=== PATIENT | male | born 1955 | race Caucasian/White ===

== ENCOUNTER → 2018-03-18 | Day surgery (SDC) | payer MEDICARE, OTHER ==
[~2018-03-18] MED LIST: LIDOCAINE 1% PF 2 ML VIAL. ID; LIDOCAINE 2% PF Vial for OR 5 ML VIAL.; MORPHINE SULFATE 4 MG/ML DISP.SYRIN. IV; ONDANSETRON PF 4 MG/2 ML VIAL. IV; PROCHLORPERAZINE 10 MG/2 ML VIAL. IV; PROPOFOL 40 ML IV; fentaNYL PF VIAL 100 MCG/2 ML VIAL IV
[2018-03-18] MEDS: IV RINGERS,LACTATED 1000ML 1,000 ML IV (07:00)
== END | disposition home or self-care (01) ==
LOC: ENDOS 07:58
DX: Z12.11 Encounter for screening for malignant neoplasm of colon (principal); K57.30 Diverticulosis of large intestine without perforation or abscess without bleeding; K64.0 First degree hemorrhoids; I10 Essential (primary) hypertension; E11.9 Type 2 diabetes mellitus without complications; J44.9 Chronic obstructive pulmonary disease, unspecified; F41.9 Anxiety disorder, unspecified; M19.90 Unspecified osteoarthritis, unspecified site; I25.10 Atherosclerotic heart disease of native coronary artery without angina pectoris; E78.00 Pure hypercholesterolemia, unspecified; G47.30 Sleep apnea, unspecified; K21.9 Gastro-esophageal reflux disease without esophagitis; N40.0 Benign prostatic hyperplasia without lower urinary tract symptoms; F32.9 Major depressive disorder, single episode, unspecified; Z72.89 Other problems related to lifestyle; Z87.891 Personal history of nicotine dependence; Z95.5 Presence of coronary angioplasty implant and graft; Z80.1 Family history of malignant neoplasm of trachea, bronchus and lung; Z82.49 Family history of ischemic heart disease and other diseases of the circulatory system; Z88.8 Allergy status to other drugs, medicaments and biological substances; Z79.82 Long term (current) use of aspirin; Z79.899 Other long term (current) drug therapy; Z79.84 Long term (current) use of oral hypoglycemic drugs; Z86.010 Personal history of colon polyps; Z98.52 Vasectomy status; Z86.19 Personal history of other infectious and parasitic diseases
CPT/HCPCS: 45378; G0105; J2704

== ENCOUNTER 2022-01-28 08:45 | Inpatient (IN) | payer MEDICARE, OTHER ==
[2022-01-28 08:25] VITALS: BP 179/80
[~2022-01-28 08:45] MED LIST changes: +ASPI325T8 PO; +ATOR40TA59 PO; +BUDE10.2 IH; +CETI10TA16 PO; +CYCL10TA19 PO; +DULO60CA7 PO; +GABA-585 PO; -LIDOCAINE 1% PF 2 ML VIAL. ID; -LIDOCAINE 2% PF Vial for OR 5 ML VIAL.; +LINZESS290 MCG PO; +MONT10TA49 PO; -MORPHINE SULFATE 4 MG/ML DISP.SYRIN. IV; +NITR0.4T24 SL; +OMEP20TA8 PO; -ONDANSETRON PF 4 MG/2 ML VIAL. IV; +OXYC40TA21 PO; -PROCHLORPERAZINE 10 MG/2 ML VIAL. IV; -PROPOFOL 40 ML IV; +RANI150T2 PO; +ROFL500T7 PO; +SERT100T PO; +TAMS0.4C2 PO; +TRAZ-123 PO; +VALS80TA3 PO; -fentaNYL PF VIAL 100 MCG/2 ML VIAL IV
[2022-01-28 11:00] VITALS: BP 161/88
[2022-01-28] MEDS: ALBUTEROL SULFATE 2.5 MG/3 ML NEBU. NEB SCH ×3 (12:00→20:28)
[2022-01-28] MEDS ORDERED: NITROGLYCERIN SUBLINGUAL 0.4 MG BOTTLE OF 25. SL PRN (12:00)
[2022-01-28] MEDS ORDERED: AZITHROMYCIN 250 MG TABLET. PO ONE (12:00)
[2022-01-28] MEDS: TAMSULOSIN 0.4 MG CAP.ER.24H. PO SCH (12:39)
[2022-01-28] MEDS: methylPREDNISolone SOD SUCC PF 40 MG/ML VIAL. IV SCH ×2 (12:40→21:22)
--- NOTE | 2022-01-28 13:29 | HP ---
DATE OF SERVICE: 01/28/2022 ADMIT DATE: 01/28/2022 HISTORY OF PRESENT ILLNESS: The patient is a 66-year-old male patient who presented to the Emergency Room of [facility] with complaint of worsening shortness of breath. He has also had cough with hemoptysis and chest pain. The pain is mostly retrosternal. Denied any radiation. Denied any nausea, vomiting or diaphoresis. He was extensively investigated in the Emergency Room and has had an EKG, which showed that he was in sinus tachycardia with a heart rate of 114 beats per minute. He has also prolonged [place] interval up to 106 milliseconds. He has left axis deviation, left anterior fascicular block and no evidence of acute STEMI. He had a chest x-ray, which showed mild hypoinflation with prominence of the pulmonary vasculature and interstitial marking, increased from comparison. Cardiac silhouette is normal in size. No focal consolidation, pleural effusion, or pneumothorax. Partially visualized ACDF and degenerative changes of the shoulders. Soft tissues are unremarkable. He has had lab work which showed normal hemoglobin, hematocrit and normal white cell count and platelets. His arterial blood gas showed a pH of 7.42, a pCO2 of 38, pO2 of 68, bicarbonate was 24 and oxygen saturation was 94%. His chemistry showed that his serum sodium was 141. Electrolytes and kidney function as well as liver enzymes are all normal. His D-dimer was only 0.58 and the patient was transferred to [facility] with acute on chronic hypoxic respiratory failure, COPD exacerbation and hemoptysis. PAST MEDICAL HISTORY: Significant for borderline type 2 diabetes mellitus, hypertension, hyperlipidemia, coronary artery disease status post PCI and stent deployment x 3. He is known to have COPD, benign prostatic hypertrophy and generalized osteoarthritis. PAST SURGICAL HISTORY: Significant for percutaneous coronary intervention with stent deployment x 3, he had brain tumor resection about 20 years ago, he had a colonoscopy and vasectomy as well as cervical spine laminectomy. ALLERGIES: He has no known drug allergies. MEDICATIONS: He is currently on the following medications: The patient is currently on cetirizine 10 mg once a day, tamsulosin 0.4 mg daily, cyclobenzaprine 10 mg 3 times a day, atorvastatin calcium 40 mg at bedtime. He is on nitroglycerin 0.4 mg sublingually every 5 minutes x 3, valsartan 80 mg once a day, aspirin 325 mg once a day, oxycodone extended release 40 mg twice a day, gabapentin 100 mg 3 times a day, duloxetine 60 mg once a day, sertraline 100 mg once a day, trazodone 100 mg once a day, Symbicort 160/4.5 one inhalation twice a day, Singulair 10 mg once a day, Daliresp 500 mcg once a day, ranitidine 150 mg once a day, omeprazole 20 mg once a day and linaclotide for Linzess ____ mcg once a day. REVIEW OF SYSTEMS: As per history of present illness. PHYSICAL EXAMINATION: GENERAL: On arrival to the Emergency Room, the patient looked somewhat pale, but no jaundice or cyanoses. No lymphadenopathy, no thyromegaly, no jugular venous distention. No lower limb edema. VITAL SIGNS: His heart rate was 117, blood pressure was 189/106, temperature was 98.9, respiratory rate was 18 and oxygen saturation was 93% on 3 liters of oxygen by nasal cannula. HEAD, EYES, EARS, NOSE, AND THROAT: Normocephalic, atraumatic. NECK: Supple. HEART: Normal first and second heart sounds. No gallop, rub or murmur. CHEST: Shows central trachea, equal bilateral chest expansion, air entry. No crepitation or rhonchi. ABDOMEN: Distended, soft, nontender, no guarding or rigidity. No organomegaly. All hernial orifice intact. Bowel sounds normal. NEUROLOGIC: He is awake, alert and oriented x 3. All his cranial nerves intact. He moves extremities without difficulty. PSYCHOLOGICAL: His affect, judgment and mood were normal. LABORATORY DATA: While in the Emergency Room, he has lab work done, which showed a white cell count 6.1, hemoglobin 13.6, hematocrit 43, MCV 80 and platelet count 221,000. His chemistry showed a serum sodium 141, potassium 3.8, chloride 104, bicarbonate 27, anion gap of 10, BUN 17, creatinine 1, estimated GFR was 74 mL per minute. His glucose 118, calcium was 9.1. Magnesium was 1.9. Total bilirubin, AST, ALT, alkaline phosphatase were normal. Total protein was 7.5, albumin was 4.2. His blood gas showed a pH of 7.42, pCO2 of 38, pO2 of 68, bicarbonate 24 and oxygen saturation was 94%. His prothrombin time, INR and APTT are normal. D-dimer was slightly elevated at 0.58. His influenza A and B are negative and coronavirus by rapid testing was negative. ASSESSMENT AND PLAN: In summary, this is a 66-year-old male patient who was seen in the Emergency Room of [facility] with worsening shortness of breath, cough with hemoptysis. He was diagnosed with acute on chronic hypoxic respiratory failure, chronic obstructive pulmonary disease, new onset of hemoptysis. The patient has a multitude of other medical problems including borderline type 2 diabetes mellitus, hypertension, hyperlipidemia, PCI with stent deployment x 3 and obviously generalized osteoarthritis as well as benign prostatic hypertrophy. I will reconcile all his medications. We will obviously monitor his lab work. We will hold his aspirin and consult Dr. Su to assist with management. He might require bronchoscopy or further evaluation and treatment. OTTONIEL/SOTERO DR: Erick TID: [id number]
[2022-01-28] MEDS: CYCLOBENZAPRINE 10 MG TABLET. PO SCH ×2 (14:31→21:22)
[2022-01-28] MEDS: GABAPENTIN 100 MG CAPSULE. PO SCH ×2 (14:32→21:22)
[2022-01-28 14:59] VITALS: BP 141/67
--- NOTE | 2022-01-28 17:32 | CONS ---
DATE OF CONSULTATION: 01/28/2022 PULMONARY CONSULTATION ATTENDING PHYSICIAN: Jennifer uRbin MD. REASON FOR CONSULTATION: Dyspnea, respiratory failure. HISTORY OF PRESENT ILLNESS: The patient is a 66-year-old obese male who has 30 years of tobaccoism and underlying obesity. He presented to [facility] with complaint of increasing shortness of breath. He also had a cough with hemoptysis and some anterior chest pain and wheezing. The patient denies any radiation of the pain to the arms or to the jaw. There was no headache, no nausea or vomiting, no diarrhea, no dysuria, no focal weakness. The patient had an EKG, which showed sinus tachycardia at [place]. He had a chest x-ray, which was reviewed by me and it shows prominent interstitial markings at the lower lobes. The patient had a blood gas that showed a pH of 7.42, pCO2 of 30 and a pO2 of 68 with 94% saturation. His D-dimer was only 0.58. He was brought into the hospital for further evaluation. I have been asked to see him for pulmonary status management. PAST MEDICAL HISTORY: Significant for type 2 diabetes, history of hypertension, hyperlipidemia, coronary artery disease, status post PCI and stent deployment. History of COPD. History of chronic respiratory failure, on home oxygen 2 liters. History of BPH. PAST SURGICAL HISTORY: PCI and brain tumor resection 20 years ago. History of colonoscopy and vasectomy. ALLERGIES: None. MEDICATIONS: Overall, reviewed as listed in the MRAD. He is currently on Rocephin and Zithromax and IV Solu-Medrol along with bronchodilators. REVIEW OF SYSTEMS: Twelve-point review of system obtained. Pertinent positives discussed in my present illness, otherwise noncontributory. All systems that were negative were reviewed as well. SOCIAL HISTORY: Smoker for 30 years. FAMILY HISTORY: Noncontributory to lungs. PHYSICAL EXAMINATION: VITAL SIGNS: Reviewed. Pulse ox is 97% on 4 liters. Afebrile. NECK: Supple. LUNGS: With anterior wheezes. CARDIOVASCULAR: With a regular rate. ABDOMEN: Soft, obese. EXTREMITIES: With trace pitting edema. LABORATORY DATA: From [place] are pending. From [place]'s showed a white cell count of 6.1, hemoglobin 13.6. Platelets were normal. Sodium 141, potassium 3.8, chloride 104, bicarbonate 27. ABGs discussed in my history of present illness. IMPRESSION: 1. Acute on chronic hypoxic respiratory failure secondary to acute exacerbation of chronic obstructive pulmonary disease and likely lower lobe pneumonia. Cannot exclude the possibility of congestive heart failure. 2. Cough and hemoptysis. Likely related to respiratory tract infection. D-dimer is only 0.58. Clinical suspicion for thromboembolic disease is low. However, I will consider doing a CT angiogram. 3. The patient with underlying chronic obstructive pulmonary disease and chronic respiratory failure, on home oxygen at 2 liters. 4. History of diabetes. 5. Underlying obesity. 6. History of coronary artery disease and percutaneous coronary intervention. RECOMMENDATIONS: 1. Discussed with the patient. At this time, we will continue present oxygen, keep saturation 92% and above. 2. Add DuoNebs. 3. Continue with Pulmicort. 4. Continue empiric antibiotic. 5. Continue IV Solu-Medrol. 6. CT angiogram. 7. Discussed with the patient. We will follow along with you. DULCE MARIA DR: Yamel TID: [id number]
[2022-01-28 19:42] VITALS: BP 147/67
[2022-01-28] MEDS: BUDESONIDE 0.5 MG/2 ML NEBU. NEB SCH (20:28)
[2022-01-28] MEDS: IPRATRPIUM/ALBUTEROL 0.5/2.5MG 3 ML NEBU. NEB SCH (20:28)
[2022-01-28] MEDS ORDERED: ATORVASTATIN CALCIUM 40 MG TABLET. PO SCH (21:00)
[2022-01-28] MEDS ORDERED: NON FORMULARY ITEM (Budesonide/Formoterol Fumarate (Symbicort 160-4.5 Mcg Inhaler) 1 PUFF) IH SCH (21:00)
[2022-01-28] MEDS ORDERED: MONTELUKAST SODIUM 10 MG TABLET. PO SCH (21:00)
[2022-01-28] MEDS ORDERED: traZODone 100 MG TABLET. PO SCH (21:00)
[2022-01-28] MEDS: oxyCODONE ER 40 MG TAB.ER.12H PO SCH (21:21)
[2022-01-28 22:25] VITALS: BP 122/67
[2022-01-28] MEDS ORDERED: oxyCODONE/APAP 10/325 1 TAB TABLET PO PRN (23:30)
[2022-01-29 02:12] VITALS: BP 155/68
[2022-01-29 06:52] LABS: HEMATOCRIT 40.7 % (39.0-53.0); HEMOGLOBIN 12.7 g/dL (13.0-17.5); RED BLOOD COUNT 5.14 x10^6/uL (4.30-5.70); RED CELL DISTRIBUTION WIDTH 18.6 % (11.5-14.5); WHITE BLOOD COUNT 8.2 x10^3/uL (4.0-11.0)
[2022-01-29 06:57] LABS: ALBUMIN 3.6 g/dL (3.4-5.0); ALBUMIN/GLOBULIN RATIO 0.9 (1.0-1.7); CALCIUM 9.1 mg/dL (8.5-10.1); CREATININE 0.9 mg/dL (0.7-1.3); GFR 84.2; POTASSIUM 4.1 mmol/L (3.5-5.1); TOTAL BILIRUBIN 0.4 mg/dL (0.2-1.0); TOTAL PROTEIN 7.5 g/dL (6.4-8.2)
[2022-01-29] MEDS: IPRATRPIUM/ALBUTEROL 0.5/2.5MG 3 ML NEBU. NEB SCH (07:15)
[2022-01-29] MEDS: BUDESONIDE 0.5 MG/2 ML NEBU. NEB SCH (07:15)
[2022-01-29] MEDS ORDERED: IOHEXOL 350 MG/ML 100 ML VIAL. IV ONE (07:30)
[2022-01-29] MEDS ORDERED: PANTOPRAZOLE 40 MG TABLET.DR. PO SCH (07:30)
[2022-01-29] MEDS: oxyCODONE ER 40 MG TAB.ER.12H PO SCH (07:57)
[2022-01-29] MEDS: TAMSULOSIN 0.4 MG CAP.ER.24H. PO SCH (07:58)
[2022-01-29] MEDS: GABAPENTIN 100 MG CAPSULE. PO SCH (07:58)
[2022-01-29] MEDS: CYCLOBENZAPRINE 10 MG TABLET. PO SCH (07:58)
[2022-01-29] MEDS: methylPREDNISolone SOD SUCC PF 40 MG/ML VIAL. IV SCH (07:58)
--- NOTE | 2022-01-29 08:09 | RAD ---
CTA CHEST INDICATION: CP/ HEMOPTYSIS Comparison: Chest radiograph 01/28/2022. TECHNIQUE: Following the uneventful administration of intravenous contrast, 100 cc Omnipaque 350, axi al CT sections were obtained through the lungs and upper abdomen. Multiplanar reconstructions and MIP images were obtained. PQRS compliance statement: One or more of the following individualized dose reduction techniques were utilized for this examinat ion: 1. Automated exposure control 2. Adjustment of the mA and/or kV according to patient size 3. Use of iterative reconstruction technique FINDINGS: Pulmonary arteries: No evidence of pulmonary thrombolic disease Lungs and Airways: Right lower lobe groundglass opacities and consolidation. Left basilar linear opac ities, probably subsegmental atelectasis. Tracheal secretions. Pleura: The pleural spaces are normal. Heart and Mediastinum: The visualized thyroid is normal in size and attenuation. No axillary or supra clavicular lymphadenopathy. No mediastinal, hilar or retrocrural lymphadenopathy. Calcified right hil ar lymph nodes consistent with remote granulomatous disease. Cardiomegaly. No pericardial effusion. C oronary artery atherosclerotic disease. Atherosclerosis of the thoracic aorta. Abdomen: Limited images through the upper abdomen show no abnormality of the visualized organs. Bones and Soft Tissues: The visualized bones and chest wall soft tissues are within normal limits. IMPRESSION: 1. No evidence of pulmonary thromboembolic disease. 2. Right lower lobe groundglass opacities and consolidation, likely an infectious/inflammatory proces s. Electronically signed by: Cristino Mistry MD (01/29/2022 8:07 AM) [id number]
--- NOTE | 2022-01-29 08:42 | PDOC ---
PULMONARY PROGRESS NOTES DATE: 01/29/22 TIME: 08:41 Subjective Patient is resting on 3 L nasal cannula, reports he is feeling better today, decreased cough, decreased shortness of breath, is hoping to discharge home as he is planning his 's . No overnight concerns from nursing, afebrile Vitals Vital Signs Date Time Temp Pulse Resp B/P (MAP) Pulse Ox O2 Delivery O2 Flow Rate FiO2 01/29/22 07:57 74 155/68 01/29/22 07:57 18 97 Nasal Cannula 2.0 01/29/22 02:12 98.0 98.0 ROS: No Nausea, No Chest Pain, No Abdominal Pain, No Increase Cough General: Alert, Oriented X4 Lungs: Wheezing (minimal ) Cardiovascular: S1, S2 Abdomen: Soft Neuro Exam: Alert, Oriented Extremities: No Edema Skin: Warm, Dry Labs Laboratory Tests Test 01/29/22 05:40 White Blood Count 8.2 x10^3/uL (4.0-11.0) Red Blood Count 5.14 x10^6/uL (4.30-5.70) Hemoglobin 12.7 g/dL (13.0-17.5) Hematocrit 40.7 % (39.0-53.0) Mean Corpuscular Volume 79 fL (79-100) Mean Corpuscular Hemoglobin 25 pg (25-35) Mean Corpuscular Hemoglobin Concent 31 g/dL (31-37) Red Cell Distribution Width 18.6 % (11.5-14.5) Platelet Count 235 x10^3/uL (140-400) Sodium Level 144 mmol/L (136-145) Potassium Level 4.1 mmol/L (3.5-5.1) Chloride Level 106 mmol/L (98-107) Carbon Dioxide Level 29 mmol/L (21-32) Anion Gap 9 (6-14) Blood Urea Nitrogen 18 mg/dL (8-26) Creatinine 0.9 mg/dL (0.7-1.3) Estimated GFR (Cockcroft-Gault) 84.2 BUN/Creatinine Ratio 20 (6-20) Glucose Level 149 mg/dL (70-99) Calcium Level 9.1 mg/dL (8.5-10.1) Total Bilirubin 0.4 mg/dL (0.2-1.0) Aspartate Amino Transf (AST/SGOT) 8 U/L (15-37) Alanine Aminotransferase (ALT/SGPT) 15 U/L (16-63) Alkaline Phosphatase 50 U/L (46-116) Total Protein 7.5 g/dL (6.4-8.2) Albumin 3.6 g/dL (3.4-5.0) Albumin/Globulin Ratio 0.9 (1.0-1.7) Laboratory Tests Test 01/29/22 05:40 White Blood Count 8.2 x10^3/uL (4.0-11.0) Red Blood Count 5.14 x10^6/uL (4.30-5.70) Hemoglobin 12.7 g/dL (13.0-17.5) Hematocrit 40.7 % (39.0-53.0) Mean Corpuscular Volume 79 fL (79-100) Mean Corpuscular Hemoglobin 25 pg (25-35) Mean Corpuscular Hemoglobin Concent 31 g/dL (31-37) Red Cell Distribution Width 18.6 % (11.5-14.5) Platelet Count 235 x10^3/uL (140-400) Sodium Level 144 mmol/L (136-145) Potassium Level 4.1 mmol/L (3.5-5.1) Chloride Level 106 mmol/L (98-107) Carbon Dioxide Level 29 mmol/L (21-32) Anion Gap 9 (6-14) Blood Urea Nitrogen 18 mg/dL (8-26) Creatinine 0.9 mg/dL (0.7-1.3) Estimated GFR (Cockcroft-Gault) 84.2 BUN/Creatinine Ratio 20 (6-20) Glucose Level 149 mg/dL (70-99) Calcium Level 9.1 mg/dL (8.5-10.1) Total Bilirubin 0.4 mg/dL (0.2-1.0) Aspartate Amino Transf (AST/SGOT) 8 U/L (15-37) Alanine Aminotransferase (ALT/SGPT) 15 U/L (16-63) Alkaline Phosphatase 50 U/L (46-116) Total Protein 7.5 g/dL (6.4-8.2) Albumin 3.6 g/dL (3.4-5.0) Albumin/Globulin Ratio 0.9 (1.0-1.7) Medications Active Scripts Medications Dose Route/Sig Max Daily Dose Days Date Category Nitrostat (Nitroglycerin) 0.4 Mg Tab.subl 0.4 Mg SL PRN Q5MIN PRN 03/18/18 Reported Symbicort 160-4.5 Mcg Inhaler (Budesonide/Formoterol Fumarate) 10.2 Gm Hfa.aer.ad 1 Puff IH BID 03/18/18 Reported Trazodone Hcl 100 Mg Tablet 100 Mg PO HS 03/18/18 Reported Daliresp (Roflumilast) 500 Mcg Tablet 500 Mcg PO 03/18/18 Reported Aspirin 325 Mg Tablet 325 Mg PO 03/18/18 Reported Zoloft (Sertraline Hcl) 100 Mg Tablet 100 Mg PO DAILY 03/18/18 Reported Cymbalta (Duloxetine Hcl) 60 Mg Capsule.dr 60 Mg PO DAILY 03/18/18 Reported Atorvastatin Calcium 40 Mg Tablet 40 Mg PO HS 03/18/18 Reported Cetirizine Hcl 10 Mg Tablet 10 Mg PO 03/18/18 Reported Singulair Tablet (Montelukast Sodium) 10 Mg Tablet 10 Mg PO HS 03/18/18 Reported Cyclobenzaprine Hcl 10 Mg Tablet 10 Mg PO TID 03/18/18 Reported Ranitidine Hcl 150 Mg Tablet 150 Mg PO DAILY 03/18/18 Reported Linzess (Linaclotide) 290 Mcg Capsule 290 Mcg PO 03/18/18 Reported Gabapentin (Gabapentin) 100 Mg Capsule 100 Mg PO TID 03/18/18 Reported Tamsulosin Hcl 0.4 Mg Cap.er.24h 0.4 Mg PO DAILY 03/18/18 Reported Diovan (Valsartan) 80 Mg Tablet 80 Mg PO DAILY 03/18/18 Reported Omeprazole 20 Mg Tablet.dr 20 Mg PO DAILY 03/18/18 Reported Oxycontin (Oxycodone HCl) 40 Mg Tab.er.12h 40 Mg PO BID 03/18/18 Reported Comments CTA chest IMPRESSION: 1. No evidence of pulmonary thromboembolic disease. 2. Right lower lobe groundglass opacities and consolidation, likely an infectious/inflammatory process. Impression . IMPRESSION: 1. Acute on chronic hypoxic respiratory failure secondary to acute exacerbation of chronic obstructive pulmonary disease and likely lower lobe pneumonia. Cannot exclude the possibility of congestive heart failure. 2. Cough and hemoptysis. Likely related to respiratory tract infection. D-dimer is only 0.58. Clinical suspicion for thromboembolic disease is low. However, I will consider doing a CT angiogram. 3. The patient with underlying chronic obstructive pulmonary disease and chronic respiratory failure, on home oxygen at 2 liters. 4. History of diabetes. 5. Underlying obesity. 6. History of coronary artery disease and percutaneous coronary intervention. Plan . Updated 01/29/2022 Continue supplemental oxygen to keep oxygen saturations greater than 90%, currently on 3 L nasal cannula, wears home O2 at 2 to 2.5 L Bronchodilators including Pulmicort Steroids with slow taper Continue antibiotics for full course CTA of chest reviewed negative for pulmonary embolism DVT/GI prophylaxis Patient wishes to discharge today as he is planning his wives if patient is able to ambulate without significant distress we are okay with him discharging today. RECOMMENDATIONS: 1. Discussed with the patient. At this time, we will continue present oxygen, keep saturation 92% and above. 2. Add DuoNebs. 3. Continue with Pulmicort. 4. Continue empiric antibiotic. 5. Continue IV Solu-Medrol. 6. CT angiogram. 7. Discussed with the patient. We will follow along with you. OLAYINKA NGUYEN MD Jan 29, 2022 08:42
[2022-01-29] MEDS ORDERED: CETIRIZINE HCL 10 MG TABLET. PO SCH (09:00)
[2022-01-29] MEDS ORDERED: AZITHROMYCIN 250 MG TABLET. PO SCH (09:00)
[2022-01-29] MEDS ORDERED: DULoxetine HCL 30 MG CAPSULE.DR PO SCH (09:00)
[2022-01-29] MEDS ORDERED: SERTRALINE 50 MG TABLET. PO SCH (09:00)
[2022-01-29] MEDS ORDERED: LOSARTAN POTASSIUM 50 MG TABLET. PO SCH (09:00)
[2022-01-29] MEDS ORDERED: LACTOBACILLUS RHAMNOSUS GG 1 CAPSULE. PO SCH (09:00)
[2022-01-29] MEDS ORDERED: ROFLUMILAST 500 MCG TABLET. PO SCH (09:00)
[2022-01-29 11:00] VITALS: BP 131/76
[2022-01-29] MEDS ORDERED: AZIT250T PO (12:02)
[2022-01-29] MEDS ORDERED: CEFD300C PO (12:02)
--- NOTE | 2022-01-29 12:30 | NUR ---
DISCHARGE PT DISCHARGES HOME WITH EXISTING HOME 02 SERVICES. PIV ET TELE DISCONTINUED. DC MEDICATION LIST REVIEWED WITH PATIENT ET DAUGHTER ET ALL QUESTIONS ANSWERED TO THEIR SATISFACTION. ESCORTED TO PRIVATE VEHICLE VIA WHEELCHAIR, PT TRANSFERS SELF INTO VEHICLE.
[2022-01-29] MEDS ORDERED: cefTRIAXone IV Push 1 GM VIAL. IVP SCH (13:00)
--- NOTE | 2022-02-04 11:54 | DS ---
DATE OF DISCHARGE: 01/29/2022 HOSPITAL COURSE: The patient is a 66-year-old male patient who was originally seen at the Emergency Room of [facility] with complaint of worsening shortness of breath. He has also had cough with hemoptysis and chest pain. The pain is mostly retrosternal. Denied any radiation. Denied any nausea, vomiting or diaphoresis. He was extensively investigated in the Emergency Room and has had an EKG, which showed that he was in sinus tachycardia with a heart rate of 116 beats per minute. He also has prolonged [place] interval up to 206 milliseconds. He has left axis deviation, left anterior fascicular block and no evidence of acute STEMI. He had also chest x-ray, which showed mild hypoinflation with prominence of the pulmonary vasculature and interstitial marking, increased from comparison. His cardiac silhouette is normal in size. No focal consolidation, pleural effusion, or pneumothorax, partially visualized ACDF and degenerative changes of the shoulders. His arterial blood gas showed a pH of 7.42, a pCO2 of 38, pO2 of 68, bicarbonate was 24 and oxygen saturation was 94%. His chemistry was mostly unremarkable. His D-dimer was only 0.58. The patient was transferred to [facility] with acute on chronic hypoxic respiratory failure, COPD exacerbation and hemoptysis. He had no further episodes of hemoptysis while at [facility]. He was seen in consultation by the connection worker and had a CT angio, which showed no evidence of pulmonary thromboembolic disease. He has right lower lobe ground glass opacities and consolidation, likely an infectious inflammatory process. As the patient remained stable and in consultation with the connection worker, a decision was made to discharge him home to continue treatment as an outpatient. PHYSICAL EXAMINATION: GENERAL: When I saw him on day of discharge, the patient was resting slightly propped up in bed, in no apparent distress. There was no pallor, jaundice, cyanosis or thyromegaly. No jugular venous distention. No lower limb edema. VITAL SIGNS: His heart rate was 83, blood pressure is 131/76, temperature was 97.5, respiratory rate was 18 and oxygen saturation was 98% on 3 liters of oxygen. HEAD, EYES, EARS, NOSE, AND THROAT: Showed normocephalic, atraumatic. NECK: Supple. HEART: Normal first and second heart sounds. No gallop or murmur. CHEST: Clear to auscultation, no crepitation or rhonchi. ABDOMEN: Distended, soft, nontender. NEUROLOGIC: He was grossly intact. LABORATORY DATA: Showed a white cell count of 8.2, hemoglobin 13, hematocrit 40, MCV 79 and platelet count 235,000. His serum sodium was 144, potassium 4.1, chloride 106, bicarbonate 29, anion gap of 9, BUN 18, creatinine 0.9. Estimated GFR was 84 mL per minute. Her glucose 149, calcium was 9.1. Total bilirubin, AST, ALT, alkaline phosphatase were normal. Total protein 7.5, albumin was 3.6. DISCHARGE MEDICATIONS: The patient was discharged home to continue on azithromycin 250 mg daily for 4 more days, cefdinir 300 mg twice a day for 7 more days. He should continue on aspirin 325 mg once a day, atorvastatin calcium 40 mg at bedtime, Symbicort 160/4.5 one puff twice a day, cetirizine 10 mg once a day, cyclobenzaprine 10 mg 3 times a day, duloxetine for Cymbalta 60 mg once a day, gabapentin 100 mg 3 times a day, linaclotide for Linzess 290 mcg daily, Singulair 10 mg once a day, nitroglycerin 0.4 mg sublingually every 5 minutes x 3, omeprazole 20 mg once a day, oxycodone for OxyContin 40 mg twice a day and ranitidine 150 mg once a day, Daliresp 500 mcg once a day, sertraline for Zoloft 100 mg once a day, tamsulosin 0.4 mg once a day, trazodone 100 mg at bedtime and Diovan 80 mg once a day. FINAL DISCHARGE DIAGNOSES: 1. Acute on chronic hypoxic respiratory failure secondary to: A/ Chronic obstructive pulmonary disease exacerbation. B. Right lower lobe pneumonia. 2. Cough with hemoptysis, likely secondary to respiratory tract infection. D-dimer was only 0.58. The CT angio showed no evidence of pulmonary emboli. 3. The patient is known to have chronic hypoxic respiratory failure, on 2 liters of oxygen at home. 4. History of diabetes mellitus. 5. Morbid obesity. 6. Coronary artery disease, status post percutaneous coronary intervention. OTTONIEL/SOTERO DR: Erick TID: [id number]
== END 2022-01-29 12:30 | disposition home or self-care (01) | DRG 193 ==
LOC: 6 SOUTH 08:45
PROVIDERS: ADMIT Internal Medicine; ATTEND Internal Medicine
DX: J18.9 Pneumonia, unspecified organism (principal); J96.21 Acute and chronic respiratory failure with hypoxia; J44.1 Chronic obstructive pulmonary disease with (acute) exacerbation; R04.2 Hemoptysis; J44.0 Chronic obstructive pulmonary disease with (acute) lower respiratory infection; I44.4 Left anterior fascicular block; I44.0 Atrioventricular block, first degree; I25.10 Atherosclerotic heart disease of native coronary artery without angina pectoris; E78.5 Hyperlipidemia, unspecified; I11.0 Hypertensive heart disease with heart failure; I50.9 Heart failure, unspecified; E66.9 Obesity, unspecified; E11.9 Type 2 diabetes mellitus without complications; M15.9 Polyosteoarthritis, unspecified; N40.0 Benign prostatic hyperplasia without lower urinary tract symptoms; Z87.891 Personal history of nicotine dependence; Z95.5 Presence of coronary angioplasty implant and graft; Z88.8 Allergy status to other drugs, medicaments and biological substances
CPT/HCPCS: 36415; 71275; 80053; 85027; 94640; J2920; Q9967; G0378; J7613; J7626